=== PATIENT | female | born 1980 | race Caucasian/White ===

== ENCOUNTER → 2024-04-06 14:58 | Outpatient (REF) | payer OTHER, SELFPAY | LOC: HWWDC 14:58 | PROVIDERS: ATTENDING PHYSICIAN Obstetrics & Gynecology Gynecology; FAMILY PHYSICIAN Family Medicine | DX: Z12.31 Encounter for screening mammogram for malignant neoplasm of breast (principal) | CPT/HCPCS: 77063; 77067 ==

== ENCOUNTER 2024-11-19 06:15 | Day surgery (SDC) | payer OTHER, SELFPAY | END 2024-11-19 12:28 | disposition home or self-care (01) | LOC: GI 06:15 | PROVIDERS: ATTENDING PHYSICIAN Internal Medicine Gastroenterology | DX: Z12.11 Encounter for screening for malignant neoplasm of colon (principal); K64.8 Other hemorrhoids | CPT/HCPCS: G0121 ==